=== PATIENT | male | born 1980 | race Hispanic/Latino ===

== ENCOUNTER 2023-01-23 13:36 | Emergency (ER) | payer SELFPAY ==
--- NOTE | 2023-01-23 14:23 | ER ---
Nurse's Notes [facility] Name: Roberto Ross Age: 42 yrs Sex: Male : 1980 Arrival Date: 01/23/2023 Time: 13:36 Bed IW2 Private MD: Diagnosis: facial cellulitis Presentation: 01/23 13:46 Chief complaint: Patient states: SMALL ABSCESS DRAINING FROM R TEMPORAL WITH bp SURROUNDING INDURATION. Coronavirus screen: At this time, the client does not indicate any symptoms associated with coronavirus-19. Ebola Screen: No symptoms or risks identified at this time. Initial Sepsis Screen: Does the patient meet any 2 criteria? No. Patient's initial sepsis screen is negative. Does the patient have a suspected source of infection? No. Patient's initial sepsis screen is negative. Risk Assessment: Do you want to hurt yourself or someone else? Patient reports no desire to harm self or others. Onset of symptoms is unknown. 13:46 Method Of Arrival: Ambulatory bp 13:46 Acuity: NALLELY 3 bp Triage Assessment: 13:49 General: Appears in no apparent distress. comfortable, Behavior is calm, cooperative, bp appropriate for age. Pain: Complains of pain in right catholic. Derm: Abscess located on right catholic. Historical: - Allergies: 13:49 No Known Drug Allergies; bp - PMHx: 13:49 Diabetes mellitus; bp - Immunization history:: Adult Immunizations up to date. - Social history:: Smoking status: Patient denies any tobacco usage or history of. Screenin:52 [facility] ED Fall Risk Assessment (Adult) History of falling in the last 3 months, ss including since admission No falls in past 3 months (0 pts). Abuse screen: Denies threats or abuse. Denies injuries from another. Nutritional screening: No deficits noted. Tuberculosis screening: Never had TB. Assessment: 14:52 General: Appears in no apparent distress. comfortable, Behavior is calm, cooperative. ss Neuro: Level of Consciousness is awake, alert, obeys commands. Derm: redness and swelling noted around R eye/ R side of face. Vital Signs: 13:46 BP 149 / 94; Pulse 100; Resp 16; Temp 97.3; Pulse Ox 97% ; Weight 98.43 kg; Height 5 bp ft. 9 in. ; 13:46 Body Mass Index 32.04 (98.43 kg, 175.26 cm) bp ED Course: 13:39 Patient arrived in ED. im 13:47 Triage completed. bp 13:49 Arm band placed on. bp 13:54 Cal Blanco MD is Attending Physician. bs3 14:52 Luann Ramirez, RN is Primary Nurse. ss 14:52 Patient has correct armband on for positive identification. ss 14:52 No provider procedures requiring assistance completed. Patient did not have IV access ss during this emergency room visit. Administered Medications: No medications were administered Medication: 14:52 VIS not applicable for this client. ss Outcome: 14:22 Discharge ordered by . bs3 14:52 Discharged to home ambulatory. ss 14:52 Condition: good 14:52 Discharge instructions given to patient, Instructed on discharge instructions, follow up and referral plans. medication usage, Demonstrated understanding of instructions, follow-up care, medications, Prescriptions given X 1. 14:53 Patient left the ED. ss Signatures: Luann Ramirez, NANETTE RN Carmine Streeter RN RN Cal Blanco MD MD bs3 Ashley Burkett im
--- NOTE | 2023-01-23 14:23 | EDPHYS ---
Physician Documentation [facility] Name: Roberto Ross Age: 42 yrs Sex: Male : 1980 Arrival Date: 01/23/2023 Time: 13:36 Bed IW2 Private MD: ED Physician Cal Blanco HPI: 01/23 14:14 This 42 yrs old Male presents to ER via Ambulatory with complaints of Facial bs3 Swelling. 14:14 43-year-old male history of eev-[id number]-vpfjwyssm diabetes presents with right temporal bs3 swelling redness he notes that he had a pimple a couple days ago he tried to pop it and had significant discharge out however he woke up today and had increased swelling, no fever, or chills, no pain with moveemnt of his eye, or anything else bothering him. Historical: - Allergies: 13:49 No Known Drug Allergies; bp - PMHx: 13:49 Diabetes mellitus; bp - Immunization history:: Adult Immunizations up to date. - Social history:: Smoking status: Patient denies any tobacco usage or history of. ROS: 14:14 Constitutional: Negative for fever, chills bs3 14:14 All other systems are negative. Exam: 14:14 Constitutional: This is a well developed, well nourished patient who is awake, alert, bs3 and in no acute distress. Head/Face: He has mild facial asymmetry particularly over the right temporal region there is erythema without focal fluctuance he has no pain with extraocular movements he has no mastoid tenderness Eyes: Pupils equal round and reactive to light, extra-ocular motions intact. Lids and lashes normal. ENT: mmm, no posterior phyarngeal erythema Neck: Trachea midline, no thyromegaly, no neck stiffness Chest/axilla: Normal chest wall appearance and motion. Nontender with no deformity. No lesions are appreciated. Cardiovascular: Regular rate and rhythm with a normal S1 and S2. symmetric pulses in upper extremities Respiratory: Lungs have equal breath sounds bilaterally, clear to auscultation, no respiratory distress MS/ Extremity: Pulses equal, no cyanosis. Neurovascular intact. Full, normal range of motion. Neuro: Awake and alert, GCS 15, oriented to person, place, time, and situation. Cranial nerves II-XII grossly intact. Motor strength 5/5 in all extremities. Sensory grossly intact. Psych: Awake, alert, with orientation to person, place and time. Behavior, mood, and affect are within normal limits. Vital Signs: 13:46 BP 149 / 94; Pulse 100; Resp 16; Temp 97.3; Pulse Ox 97% ; Weight 98.43 kg; Height 5 bp ft. 9 in. ; 13:46 Body Mass Index 32.04 (98.43 kg, 175.26 cm) bp MDM: 13:54 Patient medically screened. bs3 14:14 Data reviewed: vital signs, nurses notes. ED course: Patient with likely facial bs3 cellulitis there is no signs of orbital cellulitis no signs of mastoiditis will give antibiotics advised very strict return precautions given his diabetes status. Administered Medications: No medications were administered Disposition Summary: 01/23/23 14:22 Discharge Ordered Location: Home bs3 Problem: new bs3 Symptoms: have improved bs3 Condition: Stable bs3 Diagnosis - facial cellulitis bs3 Followup: bs3 - With: Private Physician - When: 2 - 3 days - Reason: Re-evaluation by your physician Discharge Instructions: - Discharge Summary Sheet bs3 - Cellulitis, Adult, Jyny-[id number] bs3 Forms: - Medication Reconciliation Form bs3 - Thank You Letter bs3 - Antibiotic Education bs3 - Prescription Opioid Use bs3 - [email or web address] bs3 Prescriptions: - Clindamycin HCl 300 mg Oral Capsule - take 1 capsule by ORAL route every 6 hours for 10 days; 40 capsule; Refills: 0, bs3 Product Selection Permitted Signatures: Carmine Streeter RN RN Cal Bruner MD MD bs3
[2023-01-23 16:08] VITALS: BP 149/94; TEMP 97.3; O2SAT 97
== END 2023-01-23 14:53 | disposition home or self-care (01) ==
LOC: ER 13:36
DX: L03.211 Cellulitis of face (principal)

== ENCOUNTER 2025-05-27 12:38 | Emergency (ER) | payer SELFPAY ==
[2025-05-27] MEDS ORDERED: LIDOCAINE 1% 20 ML MDV ONE (13:32)
--- NOTE | 2025-05-27 14:00 | ER ---
Nurse's Notes [facility] Name: Roberto Ross Age: 45 yrs Sex: Male : 1980 Arrival Date: 05/27/2025 Time: 12:38 Bed 9 Private MD: Diagnosis: Epidermal cyst Presentation: 05/27 12:55 Chief complaint: Patient states: BITE TO POSTERIOR NECK SUNDAY, NOW WITH INCREASING bp INFLAMMATION AND REDNESS. Coronavirus screen: At this time, the client does not indicate any symptoms associated with coronavirus-19. Ebola Screen: No symptoms or risks identified at this time. Initial Sepsis Screen: Does the patient meet any 2 criteria? No. Patient's initial sepsis screen is negative. Does the patient have a suspected source of infection? No. Patient's initial sepsis screen is negative. Risk Assessment: Do you want to hurt yourself or someone else? Patient reports no desire to harm self or others. Onset of symptoms is unknown. 12:55 Method Of Arrival: Ambulatory bp 12:55 Acuity: NALLELY 4 bp Triage Assessment: 12:56 Bite description: bite sustained to base of the skull by an unknown animal, animal bp information: vaccination(s) is not applicable. General: Appears in no apparent distress. Behavior is appropriate for age. Pain: Complains of pain in back of neck. EENT: No deficits noted. Neuro: No deficits noted. Cardiovascular: No deficits noted. Respiratory: No deficits noted. GI: No signs and/or symptoms were reported involving the gastrointestinal system. : No signs and/or symptoms were reported regarding the genitourinary system. Derm: Skin is red. Musculoskeletal: No deficits noted. Injury Description: NONE. Historical: - Allergies: 12:56 No Known Drug Allergies; bp - PMHx: 12:56 diabetes mellitus; bp - Immunization history:: Adult Immunizations unknown. - Infectious Disease History:: Denies. - Social history:: Smoking status: unknown. Screenin:00 [facility] ED Fall Risk Assessment (Adult) History of falling in the last 3 months, cc6 including since admission No falls in past 3 months (0 pts) Confusion or Disorientation No (0 pts) Intoxicated or Sedated No (0 pts) Impaired Gait No (0 pts) Mobility Assist Device Used No (0 pt) Altered Elimination No (0 pt) Score/Fall Risk Level 0 - 2 = Low Risk Oriented to surroundings, Maintained a safe environment, Hourly rounding (assess needs \T\ fall precautionary measures) done. Abuse screen: Denies threats or abuse. Denies injuries from another. Nutritional screening: No deficits noted. Tuberculosis screening: No symptoms or risk factors identified. Assessment: 13:00 General: Appears in no apparent distress. comfortable, Behavior is calm, cooperative, cc6 appropriate for age. Pain: Denies pain. Neuro: Level of Consciousness is awake, alert, obeys commands, Oriented to person, place, time, situation, Appropriate for age. Cardiovascular: Capillary refill < 3 seconds Patient's skin is warm and dry. Respiratory: Airway is patent Respiratory effort is even, unlabored, Respiratory pattern is regular, symmetrical. GI: No signs and/or symptoms were reported involving the gastrointestinal system. : No signs and/or symptoms were reported regarding the genitourinary system. EENT: No signs and/or symptoms were reported regarding the EENT system. Derm:. Derm: Skin Wound noted posterior cervical area. Musculoskeletal: No signs and/or symptoms reported regarding the musculoskeletal system. 14:20 Reassessment: No changes from previously documented assessment. Patient and/or family cc6 updated on plan of care and expected duration. Pain level reassessed. Vital Signs: 12:55 BP 150 / 94; Pulse 97; Resp 16; Temp 98; Pulse Ox 100% ; bp 14:20 BP 145 / 85; Pulse 99; Resp 16; Pulse Ox 100% on R/A; cc6 ED Course: 12:44 Patient arrived in ED. al6 12:47 Barry Platt FNP-C is [facility]. dr5 12:47 Christian Herring DO is Attending Physician. dr5 12:56 Triage completed. bp 12:56 Arm band placed on. bp 13:00 Bed in low position. Call light in reach. Side rails up X 1. Provided Education on: use cc6 of call light. 13:29 Flor Navas, NANETTE is Primary Nurse. cc6 Administered Medications: 14:48 Drug: Lidocaine Infiltration (1 %) 20 ml 20 ml Infiltration once; to bedside {Note: cc6 administered by CAMERON Florez.} Volume: 20 ml; Route: Infiltration; Outcome: 13:59 Discharge ordered by MD. dr5 14:53 Patient left the ED. ph Signatures: Manisha Wolfe, RN RN ph Carmine Streeter, RN RN bp Flor Navas, NANETTE RN cc6 Barry Platt, SANDRA-C [employer] FILE CLERK-5 Chelsea Pugh
--- NOTE | 2025-05-27 14:00 | EDPHYS ---
Physician Documentation [facility] Name: Roberto Ross Age: 45 yrs Sex: Male : 1980 Arrival Date: 05/27/2025 Time: 12:38 Bed 9 Private MD: ED Physician Christian Herring HPI: 05/27 17:12 This 45 yrs old Male presents to ER via Ambulatory with complaints of Insect dr5 Bite. 17:12 Onset: The symptoms/episode began/occurred 2 day(s) ago. Patient is a 45-year-old male dr5 with history of diabetes coming in with pain and swelling to the back of neck that started 2 days ago. Patient reports that his popped it yesterday with purulent drainage and pain is worsened. Patient denies fever, headache, dizziness, numbness.. Historical: - Allergies: 12:56 No Known Drug Allergies; bp - PMHx: 12:56 diabetes mellitus; bp - Immunization history:: Adult Immunizations unknown. - Infectious Disease History:: Denies. - Social history:: Smoking status: unknown. ROS: 17:40 Constitutional: as per hpi dr5 Exam: 17:40 Constitutional: This is a well developed, well nourished patient who is awake, alert, dr5 and in no acute distress. Head/Face: Normocephalic, atraumatic. Eyes: Pupils equal round and reactive to light, extra-ocular motions intact. Lids and lashes normal. Conjunctiva and sclera are non-icteric and not injected. Cornea within normal limits. Periorbital areas with no swelling, redness, or edema. Neck: Trachea midline, no thyromegaly or masses palpated, and no cervical lymphadenopathy. Supple, full range of motion without nuchal rigidity, or vertebral point tenderness. No Meningismus. Chest/axilla: Normal chest wall appearance and motion. Nontender with no deformity. No lesions are appreciated. Cardiovascular: Regular rate and rhythm with a normal S1 and S2. Normal PMI, no JVD. No pulse deficits. Respiratory: Lungs have equal breath sounds bilaterally, clear to auscultation. No rales, rhonchi or wheezes noted. No increased work of breathing, no retractions or nasal flaring. Abdomen/GI: Soft, non-tender, non-distended Back: No spinal tenderness. No costovertebral tenderness. Full range of motion. Skin: Warm, dry with normal turgor. Normal color with no rashes, no lesions, and no evidence of cellulitis. Patient has redness and swelling to back of neck. MS/ Extremity: Pulses equal, no cyanosis. Neurovascular intact. Full, normal range of motion. Neuro: Awake and alert, GCS 15, oriented to person, place, time, and situation. Cranial nerves II-XII grossly intact. Motor strength 5/5 in all extremities. Sensory grossly intact. Cerebellar exam normal. Normal gait. Vital Signs: 12:55 BP 150 / 94; Pulse 97; Resp 16; Temp 98; Pulse Ox 100% ; bp 14:20 BP 145 / 85; Pulse 99; Resp 16; Pulse Ox 100% on R/A; cc6 Procedures: 17:40 I \T\ D: Incision and drainage was performed for an abscess of the back of neck dr5 Anesthetized with 2 ml's 1% Lidocaine w/ Epi. Incised with #11 blade. Drained moderate amount purulent fluid. bloody fluid. Dressing: sterile 4x4 gauze, the patient tolerated the procedure well. MDM: 12:47 Medical Screening Exam initiated dr5 17:40 Differential diagnosis: abrasion, Cellulitis, abscess. Data reviewed: vital signs, dr5 nurses notes. Consideration of Admission/Observation Escalation of care including admission/observation considered. Escalation considered if patient found to have streaking or fever. I considered the following discharge prescriptions or medication management in the emergency department I discussed and recommended Over The Counter medications, Medications were administered in the Emergency Department. See MAR. Care significantly affected by the following chronic conditions: Diabetes. Care significantly affected by the following Social Determinants of Health: Poor access to healthcare and/or lack of insurance, Poor access to transportation, Problems related to employment. Counseling: I had a detailed discussion with the patient and/or guardian regarding the historical points, exam findings, and any diagnostic results supporting the discharge/admit diagnosis, the presence of at least one elevated blood pressure reading (>120/80) during this emergency department visit, the need for outpatient follow up, for definitive care, a family practitioner, to return to the emergency department if symptoms worsen or persist or if there are any questions or concerns that arise at home. Medication response: Lidocaine. Response to treatment: the patient's symptoms have markedly improved after treatment. Special discussion: I discussed with the patient/guardian in detail that at this point there is no indication for admission to the hospital. It is understood, however, that if the symptoms persist or worsen the patient needs to return immediately for re-evaluation. Based on the history and exam findings, there is no indication for further emergent testing or inpatient evaluation. I discussed with the patient/guardian the need to see the primary care provider for further evaluation of the symptoms. ED course: I\T\D completed with relief of symptoms. Will place patient on antibiotics for cellulitis. All questions. Strict ER precautions given. 05/27 13:01 Order name: Incision \T\ Drainage Setup; Complete Time: 13:39 dr5 Administered Medications: 14:48 Drug: Lidocaine Infiltration (1 %) 20 ml 20 ml Infiltration once; to bedside {Note: cc6 administered by CAMERON Florez.} Volume: 20 ml; Route: Infiltration; Disposition: 18:14 I was immediately available on-site in the Emergency Department for consultation in the ms3 care of the patient. Disposition Summary: 05/27/25 13:59 Discharge Ordered Notes: Location: Home dr5 Condition: Stable dr5 Diagnosis - Epidermal cyst dr5 Followup: dr5 - With: Emergency Department - When: As needed - Reason: Worsening of condition Followup: dr5 - With: Private Physician - When: 1 - 2 days - Reason: Recheck today's complaints, Continuance of care, Re-evaluation by your physician Discharge Instructions: - Discharge Summary Sheet dr5 - Cellulitis, Adult dr5 - Epidermoid Cyst dr5 Forms: - Medication Reconciliation Form dr5 - Antibiotic Education dr5 - Patient Portal Instructions dr5 - Leadership Thank You Letter dr5 Prescriptions: - Cephalexin 500 mg Oral Capsule - take 1 capsule ORAL route every 12 hours for 10 days; 20 capsule; Refills: 0, dr5 Product Selection Permitted Signatures: Carmine Streeter RN RN Christian Suero DO DO ms3 Flor Navas RN RN ccBarry Arrington FNP-C FNP-Cdr5 Corrections: (The following items were deleted from the chart) 17:40 17:12 Patient is a 45-year-old male with history of diabetes coming in with pain and dr5 swelling to the back of neck that started 2 days ago. Patient reports that his popped it yesterday with purulent drainage and pain is worsened.. dr5
[2025-05-27 15:01] VITALS: TEMP 98; O2SAT 100
[2025-05-27 15:02] VITALS: BP 145/85
== END 2025-05-27 14:53 | disposition home or self-care (01) ==
LOC: ER 12:38
PROC: 0H94XZZ Drainage of Neck Skin, External Approach (ICD-10-PCS; principal; 2025-05-27)
DX: L72.0 Epidermal cyst (principal)
CPT/HCPCS: 99282; J2003